=== PATIENT | female | born 1965 | race Two or more races ===

== ENCOUNTER 2020-05-04 11:00 | Outpatient (CLI) | payer OTHER, SELFPAY | END 2020-05-04 23:59 | disposition home or self-care (01) | LOC: MLB 11:00 → EDSTATUS 05-13 13:20 | PROVIDERS: ATTEND Internal Medicine Gastroenterology | DX: Z01.812 Encounter for preprocedural laboratory examination (principal); Z12.11 Encounter for screening for malignant neoplasm of colon; Z20.828 Contact with and (suspected) exposure to other viral communicable diseases | CPT/HCPCS: U0003 ×2 ==